=== PATIENT | male | born 1975 | race Caucasian/White ===

== ENCOUNTER 2019-08-19 06:37 | Outpatient (RCR) | payer BC, SELFPAY | END 2019-09-09 00:01 | LOC: SPT 06:37 | PROVIDERS: Family Provider Internal Medicine; Visit Provider Orthopaedic Surgery | DX: S46.912D Strain of unspecified muscle, fascia and tendon at shoulder and upper arm level, left arm, subsequent encounter (principal); X58.XXXD Exposure to other specified factors, subsequent encounter | CPT/HCPCS: 97110 ×5; 97161; G0283 ×2 ==

== ENCOUNTER 2019-09-10 06:00 | Outpatient (RCR) | payer SELFPAY | END 2019-09-10 23:00 | disposition home or self-care (01) | LOC: SPT 06:00 | PROVIDERS: Family Provider Internal Medicine; PCP Internal Medicine; Visit Provider Orthopaedic Surgery | DX: Z47.89 Encounter for other orthopedic aftercare (principal) ==

== ENCOUNTER 2019-10-01 09:22 | Outpatient (CLI) | payer BC, SELFPAY ==
[2019-10-01 09:42] VITALS: BMI 28.2
--- NOTE | 2019-10-01 09:56 | ECG_ITS ---
NAME OF STUDY: EXERCISE SESTAMIBI STRESS TEST INDICATION: Chest Pain, EXERCISE TREADMILL STRESS ORDERING PHYSICIAN: Manuel CLINICAL INFORMATION: Chest pain INTERPRETATION: 1. The patient exercised for 9 minutes on a Mitchel protocol. He reached a maximum heart rate of 176 beats per minute, which is 98 % of his maximum predicted heart rate. The test was stopped due to achieving the desired heart rate. 2. The baseline electrocardiogram reveals sinus rhythm and is a normal tracing. 3. With exercise, there were no ST segment changes to suggest ischemia. 4. The resting blood pressure was 136/92. The maximum blood pressure was 154/63. 5. At maximum exercise, the patient achieved 10.2 METs with a rate pressure product of 271. 6. The patient experienced no chest pain or arrhythmias during the examination. CONCLUSION: 1. Normal exercise treadmill test. 2. Average exercise capacity for age. 3. Normal blood pressure response to exercise. Electronically Signed On 10-01-2019 17:23:19 CLAIMS ACCOUNT MANAGER by Pritesh Rodríguez M.D. [email or web address]
--- NOTE | 2019-10-01 09:56 | NMCV_ITS ---
NM chika perf SPECT r/s* [id number] Jayy Hillman Age: 43 Gender: M : 1975 Exam Date: 10/01/2019 10:48 Ordering Phys: Xu Jackson DO Technologist: FRAN Matthews Exam Location: [facility] Indications: Chest Pain STRESS TEST [facility] IMAGE PROTOCOL Rest/Stress 1 Radiopharmaceutical Dose (mCi) Administration Site Administered by Rest: Tc-99m 10.9 IV FRAN Matthews Sestamibi Stress:Tc-99m 32.5 IV FRAN Jang Sestamibi Rest: 01-Oct-2019 60 Discovery 630 Stress: 01-Oct-2019 60 Discovery 630 Radiopharmaceutical was injected at 95 % maximum heart rate. Images obtained in supine and prone position. SPECT RESULTS Technical Quality: Good Raw Data Analysis: Normal Image Corrections: No attenuation or motion correction applied Summed Stress Score: 0 Summed Rest Score: 0 Summed Difference Score: 0 PERFUSION FINDINGS Small area of slightly decreased persistent tracer take was noted in the inferior wall region. FUNCTIONAL RESULTS (calculated via Gated SPECT) Stress Image LV EF (%): 74 Stress EDV (mL):77 TID: 0.67 Stress ESV (mL):20 FUNCTIONAL FINDINGS: Segmental wall motion analysis revealing no gross wall motion normalities. IMPRESSIONS 1. Myocardial perfusion imaging revealing a small area of persistent decreased tracer uptake in the inferior wall region, most likely represent attenuation artifacts. 2. LV ejection fraction was estimated to be 74%. 3. LV wall motion analysis revealing no gross wall motion abnormalities. 4. Normal LV volume. No significant coronary ischemia, based on the above findings Dr Raymundo Macias MD FACC (Electronically Signed) Final Date: 01 October 2019 18:33 S
[2019-10-01 11:54] VITALS: BP 151/58; PULSE 100
== END 2019-10-01 09:23 | disposition home or self-care (01) ==
LOC: CDL 09:25
PROVIDERS: Family Provider Internal Medicine; PCP Internal Medicine; Visit Provider Internal Medicine
DX: R07.2 Precordial pain (principal)
CPT/HCPCS: 78452; 93017; A9500

== ENCOUNTER → 2019-11-27 08:36 | Outpatient (BNVA) | payer BC, SELFPAY | PROVIDERS: Family Provider Internal Medicine; PCP Internal Medicine; Referring Provider Internal Medicine; Visit Provider Specialist | DX: R20.0 Anesthesia of skin (principal); R20.2 Paresthesia of skin | CPT/HCPCS: 95908 ==

== ENCOUNTER 2020-01-22 14:39 | Outpatient (CLI) | payer SELFPAY ==
--- NOTE | 2020-01-22 15:15 | MR_ITS ---
WS: [id number] MRI RIGHT KNEE HISTORY: pain COMPARISON: None available. Anterior cruciate ligament: Intact. Posterior cruciate ligament: Intact. Medial collateral ligament: Intact. Posterior lateral corner structures: Intact. Medial menisci: There is linear increased signal in the peripheral third posterior horn medial menisc us which extends to the inferior articular surface. The abnormal signal extends towards the free edge . Lateral meniscus: Intact. Normal signal, size and shape. Extensor mechanism: Distal quadriceps tendon is normal. Proximal patellar increased signal. Fluid and soft tissue: Small amount of suprapatellar fluid. There is a small Richmond's cyst. Margins of the Richmond's cyst are irregular suggesting there may be prior rupture. There are a few loose bodies a lso within the Richmond's cyst as it extends inferiorly. Osseous and articular structures: Patellofemoral compartment: Normal. Medial compartment: No significant narrowing or cartilage abnormality. Lateral compartment: No significant narrowing or cartilage abnormality. MR/MR knee RT wo con* [id number] IMPRESSION: 1. Horizontal tear posterior horn medial meniscus extends from the periphery t owards the free edge. 2. Moderate-sized Richmond's cyst with small loose bodies and may be partially ru ptured. 3. No fracture.
== END 2020-01-22 14:40 | disposition home or self-care (01) ==
PROVIDERS: PCP Internal Medicine; Visit Provider Orthopaedic Surgery
DX: M25.561 Pain in right knee (principal); S83.241A Other tear of medial meniscus, current injury, right knee, initial encounter; X58.XXXA Exposure to other specified factors, initial encounter; M71.21 Synovial cyst of popliteal space [Baker], right knee
CPT/HCPCS: 73721

== ENCOUNTER 2020-02-04 07:22 | Day surgery (SDC) | payer BC, SELFPAY ==
[2020-02-03 12:58] VITALS: BMI 26.9
[2020-02-04] VITALS (7 sets, daily range): BP systolic 90–147; BP diastolic 68–95; PULSE 67–89; RESP 12–18; TEMP 36.4–36.8; O2SAT 97–100
[2020-02-04] MEDS: sodium chloride 0.9% 1,000 ML 30 ML IV (08:35)
--- NOTE | 2020-02-04 08:48 | ANES.PREANE2 ---
Pre-Anesthetic Assessment Pre-Anesthetic Assessment: Height/Weight: Height 1.91 m Weight 97.522 kg Temp Pulse Resp BP Pulse Ox 97.6 F 68 18 144/91 99 02/04/20 08:16 02/04/20 08:16 02/04/20 08:16 02/04/20 08:16 02/04/20 08:16 Preop Diagnosis: Right medial meniscal tear Proposed Procedure: Operation Date: 02/04/20 09:35 Proposed Procedures p right knee arthroscopy with medial mensicectomy (34226) meniscus repair (68886) S83.241A(Right) - Mahendra Tobar MD Last intake: Intake Last Liquid Date 02/03/20 Last Liquid Time 21:30 Last Solid Date 02/03/20 Last Solid Time 20:30 Social: Social History: Alcohol (occ) and No tobacco Exam: Pre-Anes Outpt Exam: alert, oriented x 3, clear to auscultation bilaterally and regular rate & rhythm Airway: Submandibular: WNL Cervical ROM: WNL MP: 1 Dentition: Other (teeth ok) History/ROS: No significant history except as noted Pulmonary: Pulmonary: None reported CV/HEM: CV/HEM: None reported : : None reported Hepatic: Hepatic: None reported GI: GI: GERD (occ) Metabolic: Metabolic: None reported Musc/skel: Musc/skel: OA/DJD Neuropsych: Neuropsych: None reported Anesthetic Plan: ASA status: 2 Anesthesia: Anesthesia Evaluation and General Risk of > 500 ml blood loss (7ml/kg in children): No Meds/Allergies Current Medications: Current Medications Generic Name Dose Route Start Last Admin Trade Name Ranq PRN Reason Stop Dose Admin Sodium Chloride 1,000 mls @ 30 ml s/hr 02/04/20 07:45 02/04/20 08:35 Sodium Chloride 0.9% IV 02/05/20 07:44 30 mls/hr .Q24H GLENDA Administration PFSH Anesthesia PFSH: Family History Other CAD (coronary artery disease) Hypertension Social History Smoking and tobacco status: never smoked Alcohol intake: former Data Anesthesia Cardiac Studies: No Data to Display
--- NOTE | 2020-02-04 09:17 | W.PM.OPSUD ---
Surgery/Procedure H&P Update DATE OF PROCEDURE: February 04, 2020 DATE H&P PERFORMED: 01/27/20 PREOP DIAGNOSIS: Right medial meniscal tear PLANNED PROCEDURE: Operation Date: 02/04/20 09:35 Proposed Procedures p right knee arthroscopy with medial mensicectomy (55721) meniscus repair (03583) S83.241A(Right) - Mahendra Tobar MD
[2020-02-04] MEDS: morphine 4 mg/mL SDV 1 mL 8 MG IM (09:56)
--- NOTE | 2020-02-04 10:29 | PM.OP ---
Operative Report Date of procedure: February 04, 2020 Pre-op Diagnosis: Right medial meniscal tear Post-op diagnosis: other (Right medial and lateral meniscal tear) Post-op Findings: Complex tear right medial meniscus, radial tear right lateral mid Procedure Done: Partial right medial and lateral meniscectomy Pathology: none sent Anesthesia: General Findings: The patient had complex tearing in the posterior and middle third of the medial meniscus involving a large flap component and horizontal degeneration involving approximately 50% of the posterior middle thirds of the medial meniscus. He had a radial tear in the middle third of his lateral meniscus involving approximately 30% of the meniscal with Condition: stable Disposition: PACU Procedure: The patient was taken to the operating room and given a general anesthesia. The knee was briefly prepped and infiltrated with 30 cc of 0.5% Marcaine and 10 mg of morphine. The remainder of the prep was accomplished in the knee draped in the usual fashion. A timeout was performed. The knee was entered through the standard inferior medial and inferolateral portal. The diagnostic portion arthroscopy was performed initially the medial meniscal tear was identified. Utilizing an incisor shaver the unstable flap component was removed. This left unstable superior and inferior peripheral leaves meniscus in the middle and posterior third. These were lightly debrided back and the margin cleaned up with the incisor shaver and Orozco [employer] Nephew Werewolf probe. This left approximately 50% of the medial meniscus remaining. The ACL was inspected and found to be intact. The knee was then placed in a [id number] position. The radial tear is identified the middle third of the lateral meniscus. Utilizing a basket the middle third of the meniscus and the anterior and posterior to the radial tear was resected. The rim was cleaned up with an incisor shaver and werewolf probe leaving the remaining two thirds a healthy meniscus behind. The knee was irrigated with saline. Portals were closed with 3-0 Prolene. Gel dressings were applied. The patient was extubated and taken recovery room in stable condition.
--- NOTE | 2020-02-04 10:33 | SUR.PHASEI ---
1033- ORAL AIRWAY OUT, SIMPLE MASK AT 6LPM, SAT 100%
[2020-02-04] MEDS: famotidine 20 mg/2 mL INJ IVP (10:50)
[2020-02-04] MEDS: metoclopramide 5 mg/mL SDV 2 mL 10 MG IVP (10:50)
== END 2020-02-04 11:42 | disposition home or self-care (01) ==
PROVIDERS: PCP Internal Medicine; Visit Provider Orthopaedic Surgery
PROC: (CPT 29870; principal; 2020-02-04 09:35)
DX: S83.241A Other tear of medial meniscus, current injury, right knee, initial encounter (principal); X58.XXXA Exposure to other specified factors, initial encounter; K21.9 Gastro-esophageal reflux disease without esophagitis; M19.90 Unspecified osteoarthritis, unspecified site; Z82.49 Family history of ischemic heart disease and other diseases of the circulatory system; Z79.82 Long term (current) use of aspirin
CPT/HCPCS: 29880; 12345; 96374; J0690; J1100; J2001; J2250; J2270; J2405; J2704; J2765; J3010; J3490; J7030

== ENCOUNTER 2021-05-04 07:00 | Outpatient (CLI) | payer BC, SELFPAY ==
--- NOTE | 2021-05-04 07:15 | MR_ITS ---
WS: [id number] MRI RIGHT KNEE NONCONTRAST TECHNIQUE: Axial PD, coronal PD fat sat, coronal PD, sagittal PD, and sagittal PD fat-sat images obta lenad. CLINICAL INFORMATION: M25.561 - Pain in right knee COMPARISON: MRI January 22, 2020 FINDINGS: Distal quadriceps and patella tendons are intact. Diffuse subcutaneous soft tissue edema. Normal ACL and PCL. Small suprapatellar effusion. Lobulated popliteal cyst in the popliteal fossa measuring 1.4 x 5.0 x 2.4 CM. This is increased in size from previous. Moderate joint space narrowing medial joint compartment with grade III chondromalacia. Normal lateral meniscus. Horizontal tear posterior horn me dial meniscus similar to previous. No new meniscal tears. Mild chondromalacia patella. Normal medial and lateral patella retinaculum. Normal medial and lateral collateral ligaments. MR/MR knee RT wo con* [id number] IMPRESSION: 1. Normal ACL and PCL. 2. Moderate joint space narrowing medial joint compartment with grade III mack dromalacia. No subchondral edema. 3. Previously described medial meniscal tear is similar in appearance. No new meniscal tears. 4. Popliteal cyst as described above increase in size from previous. Subcutane ous soft tissue edema 5. Small suprapatellar effusion. Outbridge grading: grade III: partial-thickness cartilage loss with focal ulcer ation
== END 2021-05-04 07:01 | disposition home or self-care (01) ==
LOC: RADSHAW 07:04
PROVIDERS: PCP Internal Medicine; Visit Provider Orthopaedic Surgery
DX: M25.561 Pain in right knee (principal); M25.461 Effusion, right knee; M71.21 Synovial cyst of popliteal space [Baker], right knee
CPT/HCPCS: 73721

== ENCOUNTER → 2021-06-01 08:58 | Outpatient (BNVA) | payer BC, SELFPAY | PROVIDERS: PCP Internal Medicine; Visit Provider Orthopaedic Surgery | DX: M23.303 Other meniscus derangements, unspecified medial meniscus, right knee (principal); M94.261 Chondromalacia, right knee | CPT/HCPCS: 73560 ==

== ENCOUNTER → 2021-09-08 00:01 | Outpatient (BNVA) | payer BC, SELFPAY | PROVIDERS: PCP Internal Medicine; Visit Provider Orthopaedic Surgery | DX: Z20.822 Contact with and (suspected) exposure to COVID-19 (principal); Z01.812 Encounter for preprocedural laboratory examination | CPT/HCPCS: 87635 ==

== ENCOUNTER 2021-09-12 09:39 | Observation (INO) | payer BC, SELFPAY ==
[2021-09-08 10:45] VITALS: BMI 29.6
[2021-09-12] VITALS (21 sets, daily range): BP systolic 103–146; BP diastolic 62–105; PULSE 78–108; RESP 15–20; TEMP 36.3–37.3; O2SAT 92–99
[2021-09-12] MEDS: sodium chloride 0.9% 1,000 ML 30 ML IV (06:19)
[2021-09-12] MEDS: oxyCODONE 20 mg ER (12 HR) Tablet PO (06:19)
[2021-09-12] MEDS: CELEcoxib 200 mg Capsule 400 MG PO (06:20)
[2021-09-12] MEDS: acetaminophen 500 mg Tablet 1000 MG PO (06:20)
[2021-09-12] MEDS: gabapentin 300 mg Capsule PO (06:20)
--- NOTE | 2021-09-12 06:31 | P.ANESASSM_ITS ---
Pre-Anesthetic Assessment Pre-Anesthetic Assessment: Height/Weight: Height 1.91 m Weight 107.501 kg Temp Pulse Resp BP Pulse Ox 97.3 F L 95 18 146/105 97 09/12/21 06:06 09/12/21 06:06 09/12/21 06:19 09/12/21 06:06 09/12/21 06:19 Preop Diagnosis: Osteoarthritis Right knee Proposed Procedure: Operation Date: 09/12/21 07:00 Proposed Procedures p Total Knee Arthroplasty 67909 M94.261 M23.303(Right) - Mahendra Tobar MD Was Beta Royal taken within 24 hours: N/A Was Clonidine taken within 24 hours: N/A Last intake: Intake Last Liquid Date 09/11/21 Last Liquid Time 20:00 Last Solid Date 09/11/21 Last Solid Time 20:00 Social: Social History: Alcohol and No tobacco Exam: Pre-Anes Outpt Exam: alert, oriented x 3, clear to auscultation bila terally and regular rate & rhythm Airway: Submandibular: WNL Cervical ROM: WNL MP: 1 Dentition: Chipped History/ROS: No significant history except as noted Pulmonary: Pulmonary: None reported CV/HEM: CV/HEM: None reported : : None reported Hepatic: Hepatic: None reported GI: GI: None reported Metabolic: Metabolic: None reported Musc/skel: Musc/skel: None reported Neuropsych: Neuropsych: None reported Anesthetic Plan: ASA status: 2 Anesthesia: General and Regional (specify below) Other: Adductor canal block for post op pain control. We discussed risk and benefits of regional, general, and spinal. Patient prefers general with adductor canal block. Risk of > 500 ml blood loss (7ml/kg in children): No Meds/Allergies Current Medications: Current Medications Generic Name Dose Route Start Last Admin Trade Name Freq PRN Reason Stop Dose Admin Sodium Chloride 1,000 mls @ 30 ml s/hr 09/12/21 06:00 09/12/21 06:19 Sodium Chloride 0.9% IV 09/13/21 05:59 30 mls/hr .Q24H GLENDA Administration PFSH Anesthesia PFSH: Family History Other CAD (coronary artery disease) Hypertension Social History Alcohol intake: former Data Anesthesia Cardiac Studies: Sestamibi Stress Test (Cardiology) 10/01/19
--- NOTE | 2021-09-12 07:07 | W.PM.OPSFHP ---
Same Day Surgery H&P Indication for Procedure/HPI DATE OF PROCEDURE: September 12, 2021 CHIEF COMPLAINT/INDICATIONFOR SURGICAL PROCEDURE: Osteoarthritis right knee here for right total knee arthroplasty PREOP DIAGNOSIS: Osteoarthritis Right knee PLANNED PROCEDRUE: Operation Date: 09/12/21 07:00 Proposed Procedures p Total Knee Arthroplasty 59164 M94.261 M23.303(Right) - Mahendra Tobar MD Medications/Allergies* Allergies/Adverse Reactions Allergy/AdvReac Type Severity Reaction Status Date / Time No Known Allergies Allergy Verified 09/12/21 06:06 Current Medications: Generic Name Dose Route Start Last Admin Trade Name Freq PRN Reason Stop Dose Admin Sodium Chloride 1,000 mls @ 30 mls/hr 09/12/21 06:00 09/12/21 06:19 Sodium Chloride 0.9% IV 09/13/21 05:59 30 mls/hr .Q24H GLENDA Administration Pertinent History/Comorbid Conditions* Family History (Updated 10/01/19 @ 09:55 by Preet Saenz RN) CAD (coronary artery disease) Hypertension Social History Alcohol intake: former Pertinent Exam Findings alert, oriented x 3, clear to auscultation bilaterally and regular rate & rhythm Recommendations Surgery/Procedure today Coding Level of Care Code Acute Orthopaedic Surgeon for Nuno Sullivan
[2021-09-12] MEDS: tranexamic acid 1,000 mg/10mL SDV 1000 MG IV (07:25)
[2021-09-12] MEDS: tranexamic acid 1,000 mg/10mL SDV 1000 MG XX (07:48)
[2021-09-12] MEDS: ketorolac 30 mg/mL INJ IM (07:49)
[2021-09-12] MEDS: EPINEPHrine 1 mg/mL INJ XX (07:49)
--- NOTE | 2021-09-12 08:48 | XR_ITS ---
WS: [id number] RIGHT KNEE 2 VIEWS AP and cross table lateral imaging is submitted. HISTORY: Right Total Knee arthroplasty. COMPARISON: 06/01/2021 Total knee replacement prosthetic devices are in good position and alignment. Normal position of the patella. Postoperative air and edema noted surrounding the knee. No fractures. XR/XR knee RT 1-2V [id number] IMPRESSION: Satisfactory appearance of the recent RIGHT knee arthroplasty.
--- NOTE | 2021-09-12 08:50 | PM.OP ---
Operative Report Date of procedure: September 12, 2021 Pre-op Diagnosis: Osteoarthritis Right knee Post-op diagnosis: same Post-op Findings: Same Procedure Done: Right total knee arthroplasty Implants: Ricardo total knee arthroplasty components were used includin) Size 6 triathalon cruciate retaining femoral component 2) Size 6 Tritanium tibial component 3) Size 6/9 mm thickness CR tibial bearing insert Pathology: none sent Surgeon: Mahendra Tobar Anesthesia: General Estimated blood loss (mL): 100 Complications: None Findings: The patient had exposed subchondral bone over the medial femoral condyle and medial tibial plateau. The lateral and patellofemoral compartments were pristine Condition: stable Disposition: PACU Procedure: The patient was taken to the operating room. Patient was given 1 g of tranexamic acid . The above anesthesia provided by the anesthesia service. A timeout was performed. The patient was prepped and draped in the usual fashion with the lower extremity exposed. A anterior incision was made, midline, from a point proximal to the patella to the distal tibial tubercle. The knee was entered through a medial parapatellar approach. The patella could be displaced laterally and the knee flexed. The patellar fat pad was resected to provide better visibility. Retractors were placed medially and laterally adjacent to the tibial plateau. The femoral canal was drilled in line with the longitudinal axis of the femur. Intramedullary femoral guide for used to make a distal femoral cut in 5 degrees of valgus, resecting 8 mm from the more prominent condyle. Next the extra medullary tibial guide was placed in alignment with the longitudinal axis of the tibia. The cutting guides were set to remove just over 9 mm from the high tibial plateau. The proximal tibia was then cut. The femoral measuring guide was then placed over the distal femur. Rotation was verified checking the relationship of the guide to the condyle and the trochlear groove. The femur was measured and cut for the desired femoral component. The desired tibial baseplate was then chosen. A trial reduction with the femur tibial baseplate and polyethylene was done, assuring that the knee was stable throughout full motion. There was no patellar wear and the patella tracked well in a patellar resurfacing was not done. The knee was irrigated with a gentamicin solution. Ligament balancing revealed nothing more than a release of the deep medial collateral ligament.The tibia was prepared for the tibial baseplate. The femur tibia and patella were then press-fit into place. The posterior capsule and collateral ligaments were then injected with a solution of 100 mL of 0.2% ropivacaine, 1 mL of a 1:1000 epinephrine solution, 30 mg of Toradol, and 1 g of tranexamic acid. final polyethylene component was then snapped into place into the tibia. The extensor retinaculum was closed with a running 1 Stratafix.. The subcutaneous tissues were closed with 2-0 Vicryl and the skin was closed with a running 4-0 Stratafix. The wound was covered with a Dermabond Prinio dressing. It was covered with 4xrs and a compressive Tubigauae was applied. The patient was taken to recovery room in stable condition.
[2021-09-12] MEDS: fentaNYL 50 mcg/mL INJ 2mL IVP (09:00)
[2021-09-12] MEDS: meperidine 50 mg/mL INJ 12.5 MG IVP (09:07)
[2021-09-12] MEDS: morphine 4 mg/mL SDV 1 mL 2 MG IVP ×2 (10:08→12:09)
[2021-09-12] MEDS: oxyCODONE 5 mg IR Tab/Cap PO ×2 (10:08→14:13)
--- NOTE | 2021-09-12 11:06 | ANE.PACU2 ---
Inpatient post-anesthesia follow up: Vital signs: Temperature 98.2 F Pulse Rate 89 Respiratory Rate 16 Blood Pressure 140/72 Pulse Oximetry 98 Oxygen Delivery Me thod Room Air Oxygen Flow Rate 0 Fraction of Inspir ed Oxygen Hydration adequate: Yes Nausea and vomiting: No Pain level: 3 Mental status: Baseline
--- NOTE | 2021-09-12 12:00 | PC.NURSE ---
Pt transferred to bed from chair ambulating with walker. This nurse stood at side and pt tolerated activity well.
[2021-09-12] MEDS: sodium chloride 0.9% 1,000 ML 100 ML IV (12:23)
--- NOTE | 2021-09-12 14:48 | PM.DCS ---
Discharge Providers Date of Admission: 09/12/21 09:39 Date of Discharge: September 12, 2021 Attending Provider at Admission: Mahendra Tobar MD Attending Provider at Discharge: Mahendra Tobar MD Primary Care Provider: Xu Jackson DO Diagnoses at Discharge Discharge Diagnosis (1) Status post right knee replacement: Status: Acute (2) Osteoarthritis of right knee: Status: Resolved Reason for Visit Reason for Visit: Chondromalacia, right knee Hospital Course Hospital Course The patient tolerated surgery well. They remained hemodynamically stable. They was begun on aspirin and foot code for DVT prophylaxis. The patient was mobilized with therapy beginning the day of surgery and by the afternoon were independent with the walker. As the pain was adequately controlled and they were fully mobile they were discharged home. Physical Exam Narrative: EXAM NARRATIVE: On the day of discharge his knee incision was clean. They had no drainage. There is minimal swelling in the thigh and knee and the calf. No distal neurovascular deficits were noted Discharge Data Data Completed and Pending: Completed Studies During Hospitalization Category Date Time Status XR knee RT 1-2V 7 3560 Routine Exams 09/12/21 08:48 Completed Vitals: Last Vital Signs Temp 98.2 F 09/12/21 13:50 Pulse 78 09/12/21 13:50 Resp 16 09/12/21 14:13 BP 103/62 09/12/21 13:50 Pulse Ox 96 09/12/21 13:50 Discharge Plan Discharge Condition: Stable Prescriptions: New oxycodone 5 mg Tablet 5 mg PO Q4H PRN (Reason: Moderate Pain) 7 Days Qty: 40 RF: 0 acetaminophen 500 mg Tablet 1,000 mg PO Q8H 14 Days Qty: 84 RF: 0 aspirin 325 mg Tablet,Delayed Release (Dr/Ec) 325 mg PO DAILY 30 Days RF: 0 celecoxib 200 mg Capsule 200 mg PO Q12H 14 Days Qty: 28 RF: 0 gabapentin 300 mg Capsule 300 mg PO BID 7 Days Qty: 14 RF: 0 Discontinued mupirocin 2 % ointment 1 applic topical BID Qty: 15 RF: 0 Discharge Orders: Discharge Order (Routine); Ordered 09/12/21 Ordered By: Mahendra Tobar Referrals: Mahendra Tobar MD [Physician] - 09/16/21 8:00 am Discharge Diet: Advance as tolerated Discharge Activity: Limit activity as instructed Activity Restrictions/Additional Instructions: Okay to shower Keep Tubigauze sleeve in place for swelling. Okay to remove for hygiene. Apply FirstIce up to 20 min/hr for pain and swelling Take Celebrex twice a day for the next 15 days for pain , discontinue other anti-inflammatories Take Neurontin twice a day for 7 days. Take Tylenol 500mg (1-2 tabs) as needed 3 times a day for mild pain take oxycodone for breakthrough pain. Exercises per physical therapy. May weight-bear as tolerated on total knee arthroplasty Discharge Attestations Time Spent in Discharge Care*: other Quality Metrics Clinical Quality Measures During this hospital stay, did patient experience: None Coding Level of Care Code Acute [facility] note Diagnoses Status post right knee replacement Z96.651 Osteoarthritis of right knee M17.11
== END 2021-09-12 15:30 | disposition home or self-care (01) ==
LOC: OBGYN 09:39
PROVIDERS: Admitting Provider Orthopaedic Surgery; PCP Internal Medicine; Visit Provider Orthopaedic Surgery
PROC: (CPT 27447; principal; 2021-09-12 07:00)
DX: M17.11 Unilateral primary osteoarthritis, right knee (principal)
CPT/HCPCS: 27447; 73560; 96365; 97110; 97116; 97161; C1776; G0378; J0171; J0690; J1100; J1580; J1885; J2175; J2250; J2270; J2405; J2704; J2795; J3010; J3490; J7030

== ENCOUNTER 2021-10-04 06:00 | Outpatient (RCR) | payer BC, SELFPAY | END 2021-10-10 23:59 | disposition home or self-care (01) | LOC: SPT 06:00 | PROVIDERS: PCP Internal Medicine; Referring Provider Orthopaedic Surgery; Visit Provider Orthopaedic Surgery | DX: Z47.1 Aftercare following joint replacement surgery (principal); Z96.651 Presence of right artificial knee joint | CPT/HCPCS: 97110; 97161 ==

== ENCOUNTER 2021-10-11 06:00 | Outpatient (RCR) | payer BC, SELFPAY | END 2021-11-07 23:59 | disposition home or self-care (01) | LOC: SPT 06:00 | PROVIDERS: PCP Internal Medicine; Referring Provider Orthopaedic Surgery; Visit Provider Orthopaedic Surgery | DX: Z47.1 Aftercare following joint replacement surgery (principal); Z96.651 Presence of right artificial knee joint | CPT/HCPCS: 97110 ==

== ENCOUNTER → 2021-10-25 08:02 | Outpatient (BNVA) | payer BC, SELFPAY | PROVIDERS: PCP Internal Medicine; Visit Provider Orthopaedic Surgery | DX: Z96.651 Presence of right artificial knee joint (principal) | CPT/HCPCS: 73560; 73565; 73630 ==

== ENCOUNTER 2021-11-08 06:00 | Outpatient (RCR) | payer BC, SELFPAY | END 2021-11-18 23:59 | disposition home or self-care (01) | LOC: SPT 06:00 | PROVIDERS: PCP Internal Medicine; Referring Provider Orthopaedic Surgery; Visit Provider Orthopaedic Surgery | DX: Z47.1 Aftercare following joint replacement surgery (principal); Z96.651 Presence of right artificial knee joint | CPT/HCPCS: 97110 ==